=== PATIENT | female | born 1970 | race African-American/Black ===

== ENCOUNTER 2018-01-12 17:32 | Emergency (ER) | payer OTHER ==
--- OUTSIDE RECORDS SUMMARY | 2018-01-12 17:36 | XMS REPORT | Continuity of Care Document ---
:1970 Author Organization Interface Problems Problem Status Onset Date Classification Date Comments Source Reported Medications Medication Details Route Status Patient Ordering Order Source Instructions Provider Date Allergies, Adverse Reactions, Alerts Substance Category Reaction Severity Reaction Status Date Comments Source type Reported Immunizations Immunization Date Given Site Status Last Updated Comments Source Results Order Results Value Reference Date Interpretation Comments Source Name Range Vital Signs Vital Sign Value Date Comments Source Encounters Location Location Encounter Encounter Reason Attending ADM DC Status Source Details Type Number For Provider Date Date Visit Outpatient [id number] [facility] 11/24 [facility] [place] Outpatient [id number] [facility] 12/12 [facility] [place] Outpatient [id number] [facility] 01/19 [place] [id number] [place] Procedures Procedure Code Date Perfomer Comments Source
--- NOTE | 2018-01-12 19:28 | ER ---
Nurse's Notes [facility] Name: Katrin Osborne Age: 47 yrs Sex: Female : 1970 Arrival Date: 01/12/2018 Time: 17:34 Bed 18 Private MD: Diagnosis: Hemorrhoids and perianal venous thrombosis Presentation: 01/12 17:44 Presenting complaint: Patient states: Painful swelling at rectum that started for 3 aj weeks. Reports taking hemorrhoid OTC medication with no relief. Transition of care: patient was not received from another setting of care. Onset of symptoms was December 25, 2017. Risk Assessment: Do you want to hurt yourself or someone else? Patient reports no desire to harm self or others. Initial Sepsis Screen: Does the patient meet any 2 criteria? No. Patient's initial sepsis screen is negative. Does the patient have a suspected source of infection? No. Patient's initial sepsis screen is negative. Care prior to arrival: None. 17:44 Method Of Arrival: Ambulatory aj 17:44 Acuity: TENISHA 3 aj Triage Assessment: 17:46 General: Appears in no apparent distress. comfortable, Behavior is calm, cooperative, aj appropriate for age. Pain: Complains of pain in anus. Neuro: Level of Consciousness is awake, alert, obeys commands, Oriented to person, place, time, situation, Appropriate for age. Respiratory: Airway is patent Respiratory effort is even, unlabored, Respiratory pattern is regular, symmetrical. GI: Reports hemorrhoids. Derm: Skin is intact, is healthy with good turgor, Skin is pink, warm \T\ dry. normal. 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 - Social history:: Smoking status: Patient/guardian denies using tobacco. - Ebola Screening: : Patient negative for fever greater than or equal to 101.5 degrees Fahrenheit, and additional compatible Ebola Virus Disease symptoms Patient denies exposure to infectious person Patient denies travel to an Ebola-affected area in the 21 days before illness onset No symptoms or risks identified at this time. Screenin:59 Abuse screen: Denies threats or abuse. Denies injuries from another. Nutritional tl1 screening: No deficits noted. Tuberculosis screening: No symptoms or risk factors identified. Fall Risk None identified. Assessment: 19:40 General: Appears in no apparent distress. Pain: Complains of pain in anus. Neuro: No tl1 deficits noted. Cardiovascular: Denies chest pain. Respiratory: Airway is patent Trachea midline Breath sounds are clear bilaterally. GI: Abdomen is non-distended, Bowel sounds present X 4 quads. Abd is soft and non tender X 4 quads. : No signs and/or symptoms were reported regarding the genitourinary system. EENT: No signs and/or symptoms were reported regarding the EENT system. Derm: Wound noted anus Wound is swelling noted. Vital Signs: 17:46 BP 138 / 84; Pulse 90; Resp 19; Temp 98.3; Pulse Ox 97% on R/A; Weight 113.4 kg; Height aj 5 ft. 3 in. (160.02 cm); 18:11 BP 139 / 92; Pulse 79; Resp 18; Pulse Ox 100% on R/A; mh5 19:33 BP 140 / 91; Pulse 88; Resp 16; Temp 98.3; Pulse Ox 100% on R/A; Pain 0/10; tl1 17:46 Body Mass Index 44.29 (113.40 kg, 160.02 cm) ED Course: 17:34 Patient arrived in ED. as 17:46 Triage completed. aj 17:46 Arm band placed on right wrist. Patient placed in an exam room. aj 18:11 Patient has correct armband on for positive identification. Placed in gown. Bed in low mh5 position. Call light in reach. Side rails up X 1. Warm blanket given. Pulse ox on. NIBP on. 18:12 Brown Chong PA is PHCP. cp 18:12 Bhaskar Ybarra MD is Attending Physician. cp 19:20 Teri Jaimes, RADHA is Primary Nurse. tl1 19:27 Albert Mendoza MD is Referral Physician. 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 Patient did not have IV access during this tl1 emergency room visit. Administered Medications: No medications were administered Outcome: 19:27 Discharge ordered by . cp 19:42 Discharged to home ambulatory, with family. tl1 19:42 Condition: good 19:42 Discharge instructions given to patient, Instructed on discharge instructions, follow up and referral plans. medication usage, Demonstrated understanding of instructions, follow-up care, medications, wound care, Prescriptions given X 3. 19:42 Patient left the ED. tl1 Signatures: Kerry Rehman RN RN aj Martinez, Amelia as Lasagna, Tonya, RN RN 1 Brown Chong PA PA cp Martinez, Maria [facility]
--- NOTE | 2018-01-12 19:28 | EDPHYS ---
Physician Documentation [facility] Name: Katrin Osborne Age: 47 yrs Sex: Female : 1970 Arrival Date: 01/12/2018 Time: 17:34 Bed 18 Private MD: ED Physician Bhaskar Ybarra HPI: 01/12 18:15 This 47 yrs old Black Female presents to ER via Ambulatory with complaints of Rectal cp Pain, Rectal Problem. 18:15 The patient presents to the emergency department with pain in the rectal area. cp 18:15 Onset: The symptoms/episode began/occurred 3 week(s) ago. cp 18:15 Associate signs and symptoms: Pertinent positives: constipation, Pertinent negatives: cp abdominal pain, diarrhea, fever, lower GI bleeding. Patient reports she has been using OTC suppositories w/o relief. 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 - Social history:: Smoking status: Patient/guardian denies using tobacco. - Ebola Screening: : Patient negative for fever greater than or equal to 101.5 degrees Fahrenheit, and additional compatible Ebola Virus Disease symptoms Patient denies exposure to infectious person Patient denies travel to an Ebola-affected area in the 21 days before illness onset No symptoms or risks identified at this time. ROS: 18:20 Constitutional: Negative for body aches, chills, fever, poor PO intake. cp 18:20 Eyes: Negative for injury, pain, redness, and discharge. cp 18:20 Cardiovascular: Negative for chest pain. 18:20 Respiratory: Negative for cough, shortness of breath, wheezing. 18:20 Abdomen/GI: Positive for rectal pain, Negative for abdominal pain, nausea, vomiting, and diarrhea, constipation, anorexia, black/tarry stool, rectal bleeding. 18:20 : Negative for urinary symptoms. 18:20 Skin: Negative for cellulitis, rash. 18:20 All other systems are negative. Exam: 18:25 Constitutional: The patient appears in no acute distress, alert, awake, non-toxic, well cp developed, well nourished. 18:25 Head/Face: Normocephalic, atraumatic. cp 18:25 Eyes: Periorbital structures: appear normal, Conjunctiva: normal, no exudate, no injection, Sclera: no appreciated abnormality, Lids and lashes: appear normal, bilaterally. 18:25 ENT: External ear(s): are unremarkable, Nose: is normal, Mouth: Lips: moist, Oral mucosa: moist, Posterior pharynx: is normal, airway is patent. 18:25 Chest/axilla: Inspection: normal. 18:25 Cardiovascular: Rate: normal. 18:25 Respiratory: the patient does not display signs of respiratory distress, Respirations: normal, no use of accessory muscles, no retractions, no splinting, no tachypnea. 18:25 Abdomen/GI: Inspection: abdomen appears normal, Bowel sounds: active, all quadrants, Palpation: abdomen is soft and non-tender, in all quadrants, Rectal exam: hemorrhoid(s), external, with pain. Vital Signs: 17:46 BP 138 / 84; Pulse 90; Resp 19; Temp 98.3; Pulse Ox 97% on R/A; Weight 113.4 kg; Height aj 5 ft. 3 in. (160.02 cm); 18:11 BP 139 / 92; Pulse 79; Resp 18; Pulse Ox 100% on R/A; mh5 19:33 BP 140 / 91; Pulse 88; Resp 16; Temp 98.3; Pulse Ox 100% on R/A; Pain 0/10; tl1 17:46 Body Mass Index 44.29 (113.40 kg, 160.02 cm) aj MDM: 18:12 Patient medically screened. cp 19:00 Differential diagnosis: hemorrhoids, fissure, abscess, pilonidal cyst. cp 19:25 Data reviewed: vital signs, nurses notes. cp 19:25 Counseling: I had a detailed discussion with the patient and/or guardian regarding: the cp historical points, exam findings, and any diagnostic results supporting the discharge/admit diagnosis, the need for outpatient follow up, a general surgeon, to return to the emergency department if symptoms worsen or persist or if there are any questions or concerns that arise at home. Administered Medications: No medications were administered Disposition: 01/12/18 19:27 Discharged to Home. Impression: Hemorrhoids and perianal venous thrombosis. - Condition is Stable. - Discharge Instructions: Hemorrhoids, How to Take a Sitz Bath. - Prescriptions for Colace 100 mg Oral Tablet - take 1 tablet by ORAL route every 12 hours; 14 tablet. Tylenol- Codeine #3 300-30 mg Oral Tablet - take 2 tablets by ORAL route every 6 hours As needed no driving while taking medication; 20 tablet. Anusol- HC 25 mg Rectal Suppository - insert 1 suppository by RECTAL route every 12 hours As needed; 20 suppository. - Medication Reconciliation Form, Thank You Letter, Antibiotic Education, Prescription Opioid Use form. - Follow up: Albert Mendoza MD; When: 2 - 3 days; Reason: Recheck today's complaints. - Problem is new. - Symptoms are unchanged. Signatures: Kerry Rehman RN RN aj Teri Jaimes RN RN tl1 Brown Chong PA PA cp Corrections: (The following items were deleted from the chart) 19:42 19:27 01/12/2018 19:27 Discharged to Home. Impression: Hemorrhoids and perianal venous tl1 thrombosis. Condition is Stable. Forms are Medication Reconciliation Form, Thank You Letter, Antibiotic Education, Prescription Opioid Use. Follow up: Albert Mendoza; When: 2 - 3 days; Reason: Recheck today's complaints. Problem is new. Symptoms are unchanged. cp
[2018-01-12 19:46] VITALS: TEMP 98.3
[2018-01-12 19:50] VITALS: O2SAT 100
[2018-01-12 19:52] VITALS: BP 140/91
== END 2018-01-12 19:42 | disposition home or self-care (01) ==
LOC: ER 17:32
DX: K64.9 Unspecified hemorrhoids (principal); K64.5 Perianal venous thrombosis; D64.9 Anemia, unspecified
CPT/HCPCS: 99283